=== PATIENT | female | born 1935 | race Caucasian/White ===

== ENCOUNTER → 2016-09-15 | Outpatient (CLI) | payer MEDICARE, OTHER | END | disposition home or self-care (01) | LOC: CFH 13:15 | PROVIDERS: ATTEND Family Medicine | DX: Z12.31 Encounter for screening mammogram for malignant neoplasm of breast (principal); M81.0 Age-related osteoporosis without current pathological fracture; Z85.3 Personal history of malignant neoplasm of breast; Z90.11 Acquired absence of right breast and nipple | CPT/HCPCS: 77080; G0202 ==

== ENCOUNTER 2020-08-14 23:57 | Inpatient (IN) | payer MEDICARE, OTHER ==
[~2020-08-14] VITALS: Ht 152.4 cm; Wt 49.7 kg
--- NOTE | 2020-08-15 00:13 | NUR ---
PT BIB [facility] TO ROOM. PT PLACED IN POSITION OF COMFORT, AND C/O PAIN TO RIGHT HIP LATERLLY ON PALPATION. NO DEFORMITY NOTED, NO OBVIOUS BRUISING NOTED, AND NO ROTATED LOWER LEG. PT A&OX4 AND CALM, DENIES NEED FOR ANY PAIN MEDS AT THIS TIME. PT HAS SMALL ABRASION TO THE RIGHT ELBOW, NOT ACTIVELY BLEEDING, AND WILL BE CLEANED AND DRESSED.
--- NOTE | 2020-08-15 02:14 | NUR ---
Back from CT.
--- NOTE | 2020-08-15 02:26 | NUR ---
Right elbow, small skin tear. Steri strips applied by EMT. Waiting for re-eval of ERP and xray reports. Son at bedside.
--- NOTE | 2020-08-15 04:50 | NUR ---
Post 500ml NS bolus, b/p remains low 68/52. Informed dr ladd, verbal order for remaining 500ml bolus. Going now wide open. Will continue to monitor. No further orders for this b/p at this time.
--- NOTE | 2020-08-15 04:53 | NUR ---
0415: Pt b/p automatic 75/52, pt responds to name answeres question approp. good pulses, HR 80. Knees notched on gurney, Slight T-bird and IVF opened up. Consult with Dr ladd who is aware and agrees with plan. Placing orders for 500ml NS. Manual b/p 72/48, 80/palp. EKG done by this nurse and handed to Dr ladd. Dr villagomez at bedside to admit pt. Pt son doesn't know any of her medications says he will bring them tomorrow from [facility]. Pt and son agree with POC and waiting for admit. Will continue to monitor.
[2020-08-15] MEDS ORDERED: SODIUM CHLORIDE 0.9% 1,000ML IVBOLUS ONE ×3 (05:00→05:30)
[2020-08-15 05:03] LABS: BASOPHILS % (AUTO) 0 % (0-1); EOSINOPHILS % (AUTO) 0 % (1-7); LYMPHOCYTES % (AUTO) 6 % (22-44); MEAN CORPUSCULAR HGB CONC 32.4 g/dL (32.4-35.8); MEAN PLATELET VOLUME 9.3 fL (7.4-10.4); MONOCYTES % (AUTO) 5 % (2-9); NEUTROPHILS % (AUTO) 89 % (42-75); PLATELET COUNT 236 x10^3/uL (130-400); RED BLOOD COUNT 4.48 x10^6/uL (3.82-5.3); RED CELL DISTRIBUTION WIDTH 13.6 % (9.6-15.2)
[2020-08-15 05:10] LABS: ALBUMIN 3.6 g/dL (3.4-5.0); ANION GAP 14 mmol/L (5-15); CALCIUM 9.3 mg/dL (8.5-10.1); CHLORIDE 104 mmol/L (98-107)
[2020-08-15 05:14] LABS: ALANINE AMINOTRANSFERASE 36 U/L (12-78); ALKALINE PHOSPHATASE 100 U/L (45-117); CREATININE 1.74 mg/dL (0.55-1.02); TOTAL PROTEIN 6.8 g/dL (6.4-8.2)
--- NOTE | 2020-08-15 05:25 | NUR ---
LAB CALLED AND NOTIFIED THAT BLUE TOP NEEDS TO BE REDRAWN. RN NOTIFIED.
--- NOTE | 2020-08-15 05:45 | NUR ---
Indwelling hall placed, very difficult hall placement.
[2020-08-15 05:46] LABS: MD SCAN
[2020-08-15] MEDS ORDERED: CEFTRIAXONE PMX 1GM/50ML 50 ML ONE (05:51)
--- NOTE | 2020-08-15 06:00 | NUR ---
New hall placed, positive UO clearly seen in tube. Pt remains oriented, no complaints and at baseline. IVF bolus, complete 2250. Dr Urbina aware of b/p status. Set up for central line complete. 604: Pt to CT now STAT. b/p improving map 61. Pt remains NSR, o2 stable. All BC x2 drawn and sent. ABX started post BC.
[2020-08-15] MEDS ORDERED: PIPERACILLIN/TAZO/PMX 3.375GM 50 ML ONE ×2 (06:13)
--- NOTE | 2020-08-15 06:15 | NUR ---
PT NOT APPROPRIATE FOR ADMISSION TO MED SURG AT THIS TIME. PT WILL NEED TO BE RE-EVALUATED BY ADMITTING PROVIDER.
[2020-08-15 06:19] LABS: INTERNATIONAL NORMALIZED RATIO 1.36 (0.93-1.1); PROTHROMBIN TIME 14.5 Seconds (9.6-11.5)
[2020-08-15] MEDS ORDERED: CEFDINIR 125 MG/5 ML, ORAL SUSP ONE (06:30)
[2020-08-15] MEDS ORDERED: PLEASE ENTER ALLERGIES MC SCH (06:30)
[2020-08-15] MEDS ORDERED: VANCOMYCIN PER PHARMACY MC PRN ×2 (06:30→08:30)
[2020-08-15] MEDS ORDERED: PIPERACILLIN/TAZO/PMX 3.375GM 50 ML IV ONE (06:30)
--- NOTE | 2020-08-15 06:39 | NUR ---
COMMUNICATION TO ADMITTING ER MD REGARDING CHANGE IN PATIENT LEVEL OF CARE. PT WILL NEED TO BE EVALUATED BY ADMITTING MD REGARDING ADMISSION PLACEMENT.
--- NOTE | 2020-08-15 06:55 | NUR ---
Total IVF input 2250ml.
--- NOTE | 2020-08-15 07:03 | NUR ---
Report to TIP Zheng and TIP Benitez. Dr Martell to place central line, supplies at bedside.
--- NOTE | 2020-08-15 07:15 | NUR ---
Report from Ирина WHELAN. Pt resting in bed, appears weak, pale, Dr. Martell at bedside to insert central line. Continuous heart, oxygen and BP monitors in place. Urine sample collected from hall and walked to lab.
[2020-08-15 07:20] LABS: MICROSCOPIC INDICATED
[2020-08-15 07:26] LABS: BASOPHILS % (AUTO) 0 % (0-1); EOSINOPHILS % (AUTO) 0 % (1-7); LYMPHOCYTES % (AUTO) 6 % (22-44); MEAN CORPUSCULAR HEMOGLOBIN 29.9 pg (27.0-34.8); MEAN CORPUSCULAR HGB CONC 31.9 g/dL (32.4-35.8); MEAN PLATELET VOLUME 8.6 fL (7.4-10.4); MONOCYTES % (AUTO) 5 % (2-9); NEUTROPHILS % (AUTO) 88 % (42-75); PLATELET COUNT 208 x10^3/uL (130-400); RED CELL DISTRIBUTION WIDTH 14.2 % (9.6-15.2)
[2020-08-15] MEDS ORDERED: VANCOMYCIN 1,600 MG in SODIUM CHLORIDE 0.9% 250 ML IV ONE (07:30)
[2020-08-15 07:45] LABS: MD SCAN
--- NOTE | 2020-08-15 07:46 | NUR ---
Linens and pt gown changed, all monitors assessed and reapplied if necessary. Central line insertion complete, pt tolerated well. Pt arousable to her name being called. Pt denies pain at this time. Dr. Layne at bedside to speak with pt's son and evaluate pt.
--- NOTE | 2020-08-15 08:19 | NUR ---
Report called to Delores WHELAN in CCU. Floor ready for pt transport.
[2020-08-15] MEDS ORDERED: HYDROcodone/APAP 5/325 TABLET PO PRN (08:30)
[2020-08-15] MEDS ORDERED: POLYETHYLENE GLYCOL 17 GM PACKET PO PRN (08:30)
[2020-08-15] MEDS ORDERED: HEPARIN 5,000 UNITS/ML, 1ML SQ SCH (08:30)
[2020-08-15] MEDS ORDERED: PHARMACY MAY ADJ FOR RENAL FX MC PRN (08:30)
[2020-08-15] MEDS ORDERED: DOCUSATE 100 MG CAPSULE PO PRN (08:30)
[2020-08-15] MEDS ORDERED: ACETAMINOPHEN 325 MG TABLET PO PRN (08:30)
[2020-08-15 08:47] VITALS: BP 76/46
[2020-08-15] MEDS: NOREPINEPHRINE 8 MG in SODIUM CHLORIDE 0.9% 242 ML IV PRN ×2 (08:55→20:59)
--- NOTE | 2020-08-15 08:58 | NUR ---
Levophed gtt initiated per MAR.
[2020-08-15] MEDS: PIPERACILLIN/TAZO/PMX 2.25GM 50 ML IV SCH ×2 (09:41→16:04)
[2020-08-15] MEDS: SODIUM CHLORIDE 0.9% 1,000 ML IV SCH ×2 (09:42→23:20)
[2020-08-15] MEDS: SENNA/DOCUSATE TABLET PO SCH (09:45)
[2020-08-15] MEDS ORDERED: DEXTROSE 4 GM TAB.CHEW PO PRN (10:00)
[2020-08-15] MEDS ORDERED: DEXTROSE 50%, 50ML SYRINGE IVPush PRN (10:00)
[2020-08-15] MEDS ORDERED: GLUCAGON 1 MG IM PRN (10:00)
[2020-08-15] MEDS ORDERED: PHARMACOKINETIC CONSULTATION MC ONE (10:30)
[2020-08-15] MEDS ORDERED: PHARMACOKINETIC MONITORING MC PRN (10:30)
[2020-08-15] MEDS: SODIUM CHLORIDE FLUSH 10ML SYR IVF SCH ×2 (11:13→23:20)
[2020-08-15] MEDS: INSULIN LISPRO 100 UNITS/ML, PEN SQ-INSULIN SCH ×3 (11:13→20:00)
[2020-08-15] MEDS ORDERED: LISI40TA9 PO (12:21)
[2020-08-15] MEDS ORDERED: ATOR10TA9 PO (12:21)
[2020-08-15] MEDS ORDERED: ASPI-1027 PO (12:23)
[2020-08-15] MEDS: ONDANSETRON 2MG/ML, 2ML IVPush PRN ×2 (13:50→20:58)
[2020-08-15] MEDS ORDERED: HEPARIN 5,000 UNITS/ML, 1ML IV ONE (16:30)
[2020-08-15] MEDS: HEPARIN 25,000 UNITS/250ML PMX 250 ML IV PRN (17:05)
[2020-08-15] MEDS ORDERED: ATORVASTATIN 10 MG TABLET PO SCH (21:00)
[2020-08-15 21:46] LABS: ANION GAP 16 mmol/L (5-15); CALCIUM 8.1 mg/dL (8.5-10.1); CHLORIDE 112 mmol/L (98-107); CREATININE 2.53 mg/dL (0.55-1.02)
[2020-08-15] MEDS: ATORVASTATIN 80 MG TABLET PO SCH (22:00)
[2020-08-16] MEDS: PIPERACILLIN/TAZO/PMX 2.25GM 50 ML IV SCH ×3 (00:44→17:33)
[2020-08-16] MEDS: NOREPINEPHRINE 8 MG in SODIUM CHLORIDE 0.9% 242 ML IV PRN ×3 (04:47→18:04)
[2020-08-16] MEDS: ONDANSETRON 2MG/ML, 2ML IVPush PRN (05:04)
[2020-08-16 06:16] LABS: MEAN CORPUSCULAR HEMOGLOBIN 29.5 pg (27.0-34.8); MEAN CORPUSCULAR HGB CONC 32.1 g/dL (32.4-35.8); MEAN PLATELET VOLUME 9.2 fL (7.4-10.4); PLATELET COUNT 225 x10^3/uL (130-400); RED BLOOD COUNT 4.45 x10^6/uL (3.82-5.3); RED CELL DISTRIBUTION WIDTH 14.4 % (9.6-15.2)
[2020-08-16 06:24] LABS: ALBUMIN 2.8 g/dL (3.4-5.0); ANION GAP 14 mmol/L (5-15); CALCIUM 7.5 mg/dL (8.5-10.1); CHLORIDE 112 mmol/L (98-107); CREATININE 2.92 mg/dL (0.55-1.02)
[2020-08-16 06:27] LABS: ALKALINE PHOSPHATASE 66 U/L (45-117); BILIRUBIN,TOTAL 0.6 mg/dL (0.2-1.0); CHOLESTEROL, TOTAL 99 mg/dL (140-239); HDL CHOL % 51 % (28-40); HDL CHOLESTEROL (DIRECT) 50 mg/dL (40-60); LDL CHOLESTEROL,CALCULATED 19 mg/dL (54-169); LDL/HDL RATIO 0.4 (0.5-3.0); TOTAL PROTEIN 5.7 g/dL (6.4-8.2); TRIGLYCERIDES 151 mg/dL (50-200); VLDL CHOLESTEROL 30 mg/dL (0-25)
[2020-08-16] MEDS ORDERED: SODIUM BICARBONATE 1 MEQ/ML, 50ML VIAL IVPush ONE (06:30)
[2020-08-16 06:34] LABS: ALANINE AMINOTRANSFERASE 2481 U/L (12-78)
[2020-08-16 06:41] LABS: MD YES
[2020-08-16 06:43] LABS: <PLATELET ESTIMATE> ADEQUATE; <PLT MORPHOLOGY> NORMAL PLT MORPH; <RBC MORPHOLOGY> NORMAL; BAND#(MANUAL) 1.89 x10^3/uL; BANDS%(MANUAL) 9 % (0-7); LYMPH#(MANUAL) 1.05 x10^3/uL (1-3.4); LYMPHS% (MANUAL) 5 % (22-44); MONOS#(MANUAL) 0.42 x10^3/uL (0.3-2.7); MONOS% (MANUAL) 2 % (2-9); SEG#(MANUAL) 17.64 x10^3/uL (1.8-6.8); SEGS% (MANUAL) 84 % (42-75)
[2020-08-16] MEDS: INSULIN LISPRO 100 UNITS/ML, PEN SQ-INSULIN SCH (07:00)
[2020-08-16] MEDS ORDERED: VANCOMYCIN 900 MG in SODIUM CHLORIDE 0.9% 100 ML IV SCH (09:00)
[2020-08-16] MEDS: SENNA/DOCUSATE TABLET PO SCH (09:09)
[2020-08-16] MEDS: SODIUM CHLORIDE FLUSH 10ML SYR IVF SCH ×2 (09:09→23:43)
[2020-08-16] MEDS: ASPIRIN 81 MG TABLET EC PO SCH (09:09)
[2020-08-16] MEDS: SODIUM CHLORIDE 0.9% 1,000 ML IV SCH (11:16)
[2020-08-16] MEDS ORDERED: AMIODARONE 150 MG in DEXTROSE 5% 100 ML IV ONE (23:30)
[2020-08-16] MEDS ORDERED: FILTER 0.22 MICRON IV PRN (23:30)
[2020-08-16] MEDS: ATORVASTATIN 80 MG TABLET PO SCH (23:43)
[2020-08-16] MEDS: AMIODARONE 450 MG in DEXTROSE 5% 241 ML IV PRN (23:45)
[2020-08-17] MEDS: NOREPINEPHRINE 8 MG in SODIUM CHLORIDE 0.9% 242 ML IV PRN (00:42)
[2020-08-17] MEDS: PIPERACILLIN/TAZO/PMX 2.25GM 50 ML IV SCH ×3 (01:11→16:39)
[2020-08-17] MEDS: SODIUM CHLORIDE 0.9% 1,000 ML IV SCH ×2 (01:16→16:41)
[2020-08-17 04:24] LABS: BASOPHILS % (AUTO) 0 % (0-1); EOSINOPHILS % (AUTO) 0 % (1-7); LYMPHOCYTES % (AUTO) 8 % (22-44); MEAN CORPUSCULAR HEMOGLOBIN 29.9 pg (27.0-34.8); MEAN CORPUSCULAR HGB CONC 32.8 g/dL (32.4-35.8); MONOCYTES % (AUTO) 6 % (2-9); NEUTROPHILS % (AUTO) 86 % (42-75); PLATELET COUNT 149 x10^3/uL (130-400); RED BLOOD COUNT 3.87 x10^6/uL (3.82-5.3); RED CELL DISTRIBUTION WIDTH 14.1 % (9.6-15.2)
[2020-08-17 04:25] LABS: ALBUMIN 2.3 g/dL (3.4-5.0); ANION GAP 12 mmol/L (5-15); CHLORIDE 108 mmol/L (98-107)
[2020-08-17 04:27] LABS: MD NO
[2020-08-17 04:34] LABS: % IRON SATURATION 12 % (20-55); ALANINE AMINOTRANSFERASE 2666 U/L (12-78); ALKALINE PHOSPHATASE 75 U/L (45-117); BILIRUBIN,TOTAL 0.8 mg/dL (0.2-1.0); CREATINE KINASE, TOTAL 297 U/L (26-192); CREATININE 2.93 mg/dL (0.55-1.02); IRON LEVEL 27 mcg/dL (50-170); TOTAL IRON BINDING CAPACITY 226 mcg/dL (250-450); TOTAL PROTEIN 4.9 g/dL (6.4-8.2)
[2020-08-17] MEDS: HEPARIN 5,000 UNITS/ML, 1ML IV PRN ×2 (05:57→18:58)
[2020-08-17] MEDS: SODIUM CHLORIDE FLUSH 10ML SYR IVF SCH (08:55)
[2020-08-17] MEDS: ASPIRIN 81 MG TABLET EC PO SCH (08:56)
[2020-08-17] MEDS: SENNA/DOCUSATE TABLET PO SCH (08:56)
[2020-08-17] MEDS ORDERED: VANCOMYCIN PMX 1GM/200ML 200 ML IVPB ONE (09:00)
[2020-08-17] MEDS: AMIODARONE 450 MG in DEXTROSE 5% 241 ML IV PRN (09:04)
[2020-08-17] MEDS: HEPARIN 25,000 UNITS/250ML PMX 250 ML IV PRN (16:40)
[2020-08-17] MEDS ORDERED: NOREPINEPHRINE 32 MG in SODIUM CHLORIDE 0.9% 218 ML IV PRN (20:20)
[2020-08-17] MEDS ORDERED: SODIUM BICARB 8.4%, 50ML SYRINGE ONE ×2 (20:57)
[2020-08-17] MEDS: ATORVASTATIN 80 MG TABLET PO SCH (21:00)
[2020-08-17] MEDS ORDERED: SODIUM BICARBONATE 1 MEQ/ML, 50ML VIAL IVPush ONE (21:00)
[2020-08-17 23:28] LABS: ANION GAP 13 mmol/L (5-15); CALCIUM 7.1 mg/dL (8.5-10.1); CHLORIDE 108 mmol/L (98-107); CREATININE 3.86 mg/dL (0.55-1.02)
[2020-08-18] MEDS: PIPERACILLIN/TAZO/PMX 2.25GM 50 ML IV SCH ×3 (00:57→17:13)
[2020-08-18] MEDS: SODIUM CHLORIDE FLUSH 10ML SYR IVF SCH ×2 (00:57→09:00)
[2020-08-18] MEDS ORDERED: PROPOFOL 10 MG/ML, 20ML ONE (02:41)
[2020-08-18] MEDS ORDERED: ROCURONIUM 10MG/ML,5ML ONE (02:41)
[2020-08-18] MEDS ORDERED: PROPOFOL 10 MG/ML, 100ML IV ONE (02:41)
[2020-08-18] MEDS ORDERED: DIGOXIN 0.25 MG/ML, 2ML IVPush ONE (05:00)
[2020-08-18] MEDS ORDERED: AMIODARONE 150 MG in DEXTROSE 5% 100 ML IV ONE (05:00)
[2020-08-18] MEDS ORDERED: DIGOXIN 0.25 MG/ML, 2ML ONE (05:05)
[2020-08-18] MEDS: PHENYLEPHRINE 50 MG in SODIUM CHLORIDE 0.9% 245 ML IV PRN ×2 (05:14→05:23)
[2020-08-18] MEDS: ASPIRIN 81 MG TABLET EC PO SCH (06:00)
[2020-08-18 07:28] LABS: ANION GAP 16 mmol/L (5-15); CHLORIDE 107 mmol/L (98-107); CREATININE 4.21 mg/dL (0.55-1.02)
[2020-08-18] MEDS: SODIUM CHLORIDE 0.9% 1,000 ML IV SCH (08:29)
[2020-08-18 08:41] LABS: BASOPHILS % (AUTO) 0 % (0-1); EOSINOPHILS % (AUTO) 1 % (1-7); LYMPHOCYTES % (AUTO) 2 % (22-44); MEAN CORPUSCULAR HEMOGLOBIN 29.9 pg (27.0-34.8); MEAN CORPUSCULAR HGB CONC 33.2 g/dL (32.4-35.8); MEAN PLATELET VOLUME 10.1 fL (7.4-10.4); MONOCYTES % (AUTO) 6 % (2-9); NEUTROPHILS % (AUTO) 90 % (42-75); PLATELET COUNT 82 x10^3/uL (130-400); RED CELL DISTRIBUTION WIDTH 14.1 % (9.6-15.2)
[2020-08-18] MEDS: SENNA/DOCUSATE TABLET PO SCH (09:00)
[2020-08-18 09:03] LABS: MD SCAN
[2020-08-18] MEDS ORDERED: PROPOFOL 10 MG/ML, 20ML IV ONE (11:30)
[2020-08-18] MEDS ORDERED: PROPOFOL 100 ML IV PRN (11:30)
[2020-08-18] MEDS ORDERED: ROCURONIUM 10 MG/ML,10ML IVPush ONE (11:30)
[2020-08-18] MEDS ORDERED: PHARMACY MAY ADJ FOR RENAL FX MC SCH (11:30)
[2020-08-18] MEDS ORDERED: SODIUM BICARB 8.4%, 50ML SYRINGE ONE (15:44)
[2020-08-18] MEDS ORDERED: SODIUM BICARB 8.4%, 50ML SYRINGE IVPush ONE (16:00)
[2020-08-18] MEDS ORDERED: SODIUM BICARBONATE 8.4% 150 MEQ in SODIUM CHLORIDE 0.45% 1,000 ML IV SCH (16:00)
[2020-08-18] MEDS ORDERED: ONDANSETRON 2MG/ML, 2ML IVPush PRN (20:00)
[2020-08-18] MEDS ORDERED: MORPHINE SULFATE 4 MG/ML, 1ML IVPush PRN (20:00)
[2020-08-18] MEDS ORDERED: LORazepam 2 MG/ML, 1ML IVPush PRN (20:00)
[2020-08-18] MEDS ORDERED: MORPHINE 30MG/30ML PCA.SYR IV PRN (20:00)
[2020-08-18] MEDS ORDERED: LORazepam 2 MG/ML, 1ML IVPush SCH (20:00)
[2020-08-18] MEDS ORDERED: LORazepam 2 MG/ML, 1ML IV ONE (20:00)
[2020-08-18] MEDS ORDERED: MORPHINE SULFATE 4 MG/ML, 1ML IV ONE (20:00)
[2020-08-18] MEDS ORDERED: ATROPINE OPHTH SOLN 1%, 5ML PO PRN (20:00)
[2020-08-18] MEDS ORDERED: SODIUM CHLORIDE FLUSH 10ML SYR IVF SCH (21:00)
== END 2020-08-18 23:50 | disposition expired | DRG 871 ==
LOC: ED 08-15 05:06 → UNDOADMIN 08-15 05:11 → EDIP 08-15 05:11 → CCU 08-15 09:11
PROVIDERS: ADMIT Internal Medicine; ATTEND Internal Medicine
PROC: 0T9B70Z Drainage of Bladder with Drainage Device, Via Natural or Artificial Opening (ICD-10-PCS; 2020-08-15)
PROC: 02HV33Z Insertion of Infusion Device into Superior Vena Cava, Percutaneous Approach (ICD-10-PCS; 2020-08-16)
PROC: B548ZZA Ultrasonography of Superior Vena Cava, Guidance (ICD-10-PCS; 2020-08-16)
PROC: 05HM33Z Insertion of Infusion Device into Right Internal Jugular Vein, Percutaneous Approach (ICD-10-PCS; 2020-08-16)
PROC: B543ZZA Ultrasonography of Right Jugular Veins, Guidance (ICD-10-PCS; 2020-08-16)
PROC: 5A1935Z Respiratory Ventilation, Less than 24 Consecutive Hours (ICD-10-PCS; principal; 2020-08-18)
PROC: 0BH17EZ Insertion of Endotracheal Airway into Trachea, Via Natural or Artificial Opening (ICD-10-PCS; 2020-08-18)
DX: A41.9 Sepsis, unspecified organism (principal); J96.01 Acute respiratory failure with hypoxia; R65.21 Severe sepsis with septic shock; I21.A1 Myocardial infarction type 2; S32.591A Other specified fracture of right pubis, initial encounter for closed fracture; S32.119A Unspecified Zone I fracture of sacrum, initial encounter for closed fracture; I50.20 Unspecified systolic (congestive) heart failure; N17.9 Acute kidney failure, unspecified; N30.00 Acute cystitis without hematuria; B96.20 Unspecified Escherichia coli [E. coli] as the cause of diseases classified elsewhere; E78.5 Hyperlipidemia, unspecified; E87.5 Hyperkalemia; G89.11 Acute pain due to trauma; I45.9 Conduction disorder, unspecified; I11.0 Hypertensive heart disease with heart failure; K90.0 Celiac disease; R57.0 Cardiogenic shock; R73.9 Hyperglycemia, unspecified; W01.0XXA Fall on same level from slipping, tripping and stumbling without subsequent striking against object, initial encounter; W18.39XA Other fall on same level, initial encounter; Y92.009 Unspecified place in unspecified non-institutional (private) residence as the place of occurrence of the external cause; Z74.01 Bed confinement status; Z82.49 Family history of ischemic heart disease and other diseases of the circulatory system; Z85.3 Personal history of malignant neoplasm of breast; Z90.12 Acquired absence of left breast and nipple; Z90.710 Acquired absence of both cervix and uterus; Y93.89 Activity, other specified; Y92.098 Other place in other non-institutional residence as the place of occurrence of the external cause; Y99.8 Other external cause status
CPT/HCPCS: 36415; 36556; 36573; 36600; 70450; 71045; 72192; 74018; 74177; 76937; 77001; 80048; 80053; 80061; 80074; 80202; 81001; 82533; 82550; 82803; 82962; 83036; 83540; 83550; 83605; 83735; 83880; 84100; 84145; 84439; 84443; 84478; 84484; 85014; 85018; 85025; 85520; 85610; 85730; 86850; 86900; 86923; 87040; 87070; 87077; 87081; 87086; 87186; 87205; 93005; 93880; 93970; 94002; 96361; 96374; C8929; G0378; J1644; J2405; J2543; J2704; J3370; J7060; Q9957; C1751; J0282; J1160; J1642; J1815; J2060; J2270; J2370; J7030; J7050